=== PATIENT | male | born 1940 | race Caucasian/White ===

== ENCOUNTER 2019-03-05 16:52 | Inpatient (IN) | payer MEDICARE, OTHER ==
[2019-03-05] MEDS ORDERED: Aspirin 81 MG Tab.Chew PO ONE (17:44)
[2019-03-05] MEDS ORDERED: Diltiazem IR 30 MG Tab PO ONE (17:44)
--- NOTE | 2019-03-05 17:50 | EDM.PDOC ---
<Alex,Emily - Last Filed: 03/05/19 18:48> ED HPI GENERAL MEDICAL PROBLEM - General Chief Complaint: Cardiovascular Problem Stated Complaint: A FIB Time Seen by Provider: 03/05/19 17:35 - Related Data Allergies Allergy/AdvReac Type Severity Reaction Status Date / Time No Known Allergies Allergy Verified 03/05/19 17:12 Home Meds: Home Meds Docusate Sodium [Colace] 100 mg PO BID 03/29/14 [History] Niacin [Niacin ER] 500 mg PO DAILY 03/29/14 [History] atorvaSTATin [Lipitor] 10 mg PO BEDTIME 03/29/14 [History] levETIRAcetam [Keppra] 750 mg PO BID 03/29/14 [History] Betamethasone/Clotrimazole [Lotrisone] 1 applic TOP BID PRN 03/05/19 [History] Carbidopa/Levodopa [Sinemet 25-100 mg Tablet] 2 each PO QID 03/05/19 [History] Course - Vital Signs Last Recorded V/S: Last Vital Signs Temp 37.2 C 03/06/19 02:00 Pulse 90 03/06/19 07:00 Resp 22 H 03/06/19 07:00 BP 104/70 03/06/19 07:00 Pulse Ox 93 L 03/06/19 07:00 - Orders/Labs/Meds Orders: Active Orders 24 hr Category Date Time Status Cardiac Monitoring [RC] .As Directed Care 03/05/19 17:29 Inactive Diltiazem 125 mg Med 03/05/19 20:30 Active Sodium Chloride 0.9% [Normal Saline] 100 ml IV TITRATE Medication Orders Acetaminophen (Tylenol) 650 mg PO Q4H PRN PRN Reason: Pain (Mild 1-3)/fever Apixaban (Eliquis) 5 mg PO BID [facility] Last Admin: 03/05/19 22:29 Dose: 5 mg Atorvastatin Calcium (Lipitor) 10 mg PO BEDTIME [facility] Last Admin: 03/05/19 22:28 Dose: 10 mg Betamethasone/Clotrimazole (Lotrisone) 0 gm TOP BID PRN PRN Reason: rash Carbidopa/Levodopa (Sinemet 25-100 Mg) 2 tab PO 0630,1000,1500,2100 [facility] Last Admin: 03/06/19 06:27 Dose: 2 tab Docusate Sodium (Colace) 100 mg PO BID [facility] Last Admin: 03/05/19 22:28 Dose: 100 mg Diltiazem HCl 125 mg/ Sodium (Chloride) 125 mls @ 5 mls/hr IV TITRATE BERTHA; Protocol Last Titration: 03/06/19 00:35 Dose: 0 mg/hr, 0 mls/hr Titration: 03/06/19 00:00 Dose: 2.5 mg/hr, 2.5 mls/hr Admin: 03/05/19 20:40 Dose: 5 mg/hr, 5 mls/hr Levetiracetam (Keppra) 750 mg PO BID [facility] Last Admin: 03/05/19 22:28 Dose: 750 mg Niacin (Niacin) 500 mg PO DAILY [facility] Ondansetron HCl (Zofran) 4 mg IV Q4H PRN PRN Reason: Nausea/Vomiting Polyethylene Glycol (Miralax) 17 gm PO DAILY PRN PRN Reason: Constipation Sodium Chloride (Saline Flush) 10 ml FLUSH ASDIRECTED PRN PRN Reason: Keep Vein Open Labs: Laboratory Tests 03/05/19 03/05/19 03/05/19 Range/Units 17:57 17:57 18:43 WBC 4.2 L (4.5-11.0) K/uL RBC 4.71 (4.30-5.90) M/uL Hgb 14.1 D (12.0-15.0) g/dL Hct 43.6 (40.0-54.0) % MCV 93 (80-98) fL MCH 30 (27-31) pg MCHC 32 (32-36) % Plt Count 136 L (150-400) K/uL Sodium 146 (140-148) mmol/L Potassium 4.1 (3.6-5.2) mmol/L Chloride 108 (100-108) mmol/L Carbon Dioxide 28 (21-32) mmol/L Anion Gap 10.1 (5.0-14.0) mmol/L BUN 14 (7-18) mg/dL Creatinine 0.8 (0.8-1.3) mg/dL Est Cr Clr Drug Dosing 82.36 mL/min Estimated GFR (MDRD) > 60 (>60) Glucose 108 H (74-106) mg/dL Calcium 9.1 (8.5-10.1) mg/dL Magnesium 2.0 (1.8-2.4) mg/dL Total Bilirubin (0.2-1.0) mg/dL Direct Bilirubin (0.0-0.2) mg/dL Indirect Bilirubin AST (15-37) U/L ALT (12-78) U/L Alkaline Phosphatase (46-116) U/L Troponin I < 0.017 (0.000-0.056) ng/mL Total Protein (6.4-8.2) g/dL Albumin (3.4-5.0) g/dL Globulin (2.3-3.5) g/dL Albumin/Globulin Ratio (1.2-2.2) TSH, Ultra Sensitive 1.083 (0.358-3.740) uIU/mL 03/05/19 Range/Units 18:43 WBC (4.5-11.0) K/uL RBC (4.30-5.90) M/uL Hgb (12.0-15.0) g/dL Hct (40.0-54.0) % MCV (80-98) fL MCH (27-31) pg MCHC (32-36) % Plt Count (150-400) K/uL Sodium (140-148) mmol/L Potassium (3.6-5.2) mmol/L Chloride (100-108) mmol/L Carbon Dioxide (21-32) mmol/L Anion Gap (5.0-14.0) mmol/L BUN (7-18) mg/dL Creatinine (0.8-1.3) mg/dL Est Cr Clr Drug Dosing mL/min Estimated GFR (MDRD) (>60) Glucose (74-106) mg/dL Calcium (8.5-10.1) mg/dL Magnesium (1.8-2.4) mg/dL Total Bilirubin 0.6 (0.2-1.0) mg/dL Direct Bilirubin 0.18 (0.0-0.2) mg/dL Indirect Bilirubin 0.42 AST 35 (15-37) U/L ALT 13 D (12-78) U/L Alkaline Phosphatase 59 (46-116) U/L Troponin I (0.000-0.056) ng/mL Total Protein 6.1 L (6.4-8.2) g/dL Albumin 3.7 (3.4-5.0) g/dL Globulin 2.4 (2.3-3.5) g/dL Albumin/Globulin Ratio 1.5 (1.2-2.2) TSH, Ultra Sensitive (0.358-3.740) uIU/mL Meds: Medications Generic Name Dose Route Start Last Admin Trade Name Freq PRN Reason Stop Dose Admin Acetaminophen 650 mg 03/05/19 20:54 Tylenol PO Q4H PRN Pain (Mild 1-3)/fever Apixaban 5 mg 03/05/19 21:00 03/05/19 22:29 Eliquis PO 5 mg BID BERTHA Administration Atorvastatin Calcium 10 mg 03/05/19 21:00 03/05/19 22:28 Lipitor PO 10 mg BEDTIME BERTHA Administration Betamethasone/Clotrimazole 0 gm 03/05/19 22:00 Lotrisone TOP BID PRN rash Carbidopa/Levodopa 2 tab 03/06/19 06:30 03/06/19 06:27 Sinemet 25-100 Mg PO 2 tab 0630,1000,1500,2100 BERTHA Administration Docusate Sodium 100 mg 03/05/19 21:00 03/05/19 22:28 Colace PO 100 mg BID BERTHA Administration Diltiazem HCl 125 mg/ Sodium 125 mls @ 5 mls/hr 03/05/19 20:30 03/06/19 00:35 Chloride IV 0 mg/hr TITRATE BERTHA 0 mls/hr Titration Protocol 5 MG/HR Levetiracetam 750 mg 03/05/19 21:00 03/05/19 22:28 Keppra PO 750 mg BID BERTHA Administration Niacin 500 mg 03/06/19 09:00 Niacin PO DAILY BERTHA Ondansetron HCl 4 mg 03/05/19 20:54 Zofran IV Q4H PRN Nausea/Vomiting Polyethylene Glycol 17 gm 03/05/19 20:54 Miralax PO DAILY PRN Constipation Sodium Chloride 10 ml 03/05/19 20:54 Saline Flush FLUSH ASDIRECTED PRN Keep Vein Open Discontinued Medications Generic Name Dose Route Start Last Admin Trade Name Freq PRN Reason Stop Dose Admin Aspirin 324 mg 03/05/19 17:44 03/05/19 17:51 Aspirin PO 03/05/19 17:45 324 mg ONETIME ONE Administration Betamethasone/Clotrimazole 0 gm 03/05/19 21:00 Lotrisone TOP BID BERTHA Carbidopa/Levodopa 2 tab 03/05/19 21:00 Sinemet 25-100 Mg PO TID BERTHA Diltiazem HCl 30 mg 03/05/19 17:44 03/05/19 17:51 Cardizem PO 03/05/19 17:45 30 mg ONETIME ONE Administration Departure - Departure Disposition: Admitted As Inpatient 68 Clinical Impression: Atrial fibrillation Qualifiers: Atrial fibrillation type: paroxysmal Qualified Code(s): I48.0 - Paroxysmal atrial fibrillation - My Orders Last 24 Hours: My Active Orders 03/05/19 17:29 Cardiac Monitoring [RC] .As Directed - Assessment/Plan Last 24 Hours: My Active Orders 03/05/19 17:29 Cardiac Monitoring [RC] .As Directed <Hank Munoz - Last Filed: 03/06/19 08:00> ED HPI GENERAL MEDICAL PROBLEM - General Source of Information: Reports: Patient, Old Records, RN History Limitations: Reports: No Limitations - History of Present Illness INITIAL COMMENTS - FREE TEXT/NARRATIVE: 79 yo male presents with suspected afib with RVR. 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 He used to have HTN, but no longer does even without tx. He used to be on ASA, but no longer is. He has no hx of DM, CAD, CVA, or DVT. He usually has very brief bouts of afib, today it has been present since some time this morning, he knows he did not have it when he awoke. He gets most of his cares in [place] and would like to consult with them in the near future for this. He has early, mild Parkinsonism and is concerned about drug interactions with this. He is not aware of valvular dz of his heart. He does not have a hx of thyroid dz. He has no CP, SOB, or diaphoresis with today's afib episode. 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 (see below) (none) Past Medical History HEENT History: Reports: Impaired Vision Cardiovascular History: Reports: Afib, High Cholesterol, Hypertension Genitourinary History: Reports: Renal Calculus Musculoskeletal History: Reports: Back Pain, Chronic, Osteoarthritis Neurological History: Reports: Parkinson's, Seizure Other Neuro History: temporal lobe seizures Psychiatric History: Reports: None Hematologic History: Reports: Other (See Below) Other Hematologic History: lymes Oncologic (Cancer) History: Reports: Prostate Other Oncologic History: skin cancer Dermatologic History: Reports: Melanoma, Seborrheic Dermatitis - Infectious Disease History Infectious Disease History: Reports: Shingles - Past Surgical History HEENT Surgical History: Reports: Tonsillectomy Other HEENT Surgeries/Procedures: dental implant Male Surgical History: Reports: Prostatectomy Other Male Surgeries/Procedures: 2012 Social & Family History - Tobacco Use Smoking Status *Q: Never Smoker - Caffeine Use Caffeine Use: Reports: Coffee - Recreational Drug Use Recreational Drug Use: No ED ROS GENERAL - Review of Systems Review Of Systems: See Below Constitutional: Reports: No Symptoms HEENT: Reports: No Symptoms Respiratory: Reports: No Symptoms Cardiovascular: Reports: Palpitations (with tachycardia) Endocrine: Reports: No Symptoms GI/Abdominal: Reports: No Symptoms : Reports: No Symptoms Musculoskeletal: Reports: No Symptoms Skin: Reports: No Symptoms Neurological: Reports: No Symptoms Psychiatric: Reports: No Symptoms ED EXAM, GENERAL - Physical Exam Exam: See Below Exam Limited By: No Limitations General Appearance: Alert, WD/WN, No Apparent Distress Eye Exam: Bilateral Eye: Normal Inspection Ears: Normal External Exam, Normal Canal, Hearing Grossly Normal Ear Exam: Bilateral Ear: Auricle Normal, Canal Normal Nose: Normal Inspection, No Blood Throat/Mouth: Normal Inspection, Normal Lips, Normal Voice, No Airway Compromise Head: Atraumatic, Normocephalic Neck: Normal Inspection Respiratory/Chest: No Respiratory Distress, Lungs Clear, Normal Breath Sounds, No Accessory Muscle Use Cardiovascular: Tachycardia, Irregularly Irregular Neurological: Alert, Oriented, CN II-XII Intact, Normal Cognition, No Motor/ Sensory Deficits Psychiatric: Normal Affect, Normal Mood Skin Exam: Warm, Dry, Intact, Normal Color, No Rash Course - Orders/Labs/Meds Labs: Laboratory Tests 06/08/1303/05/19 03/05/19 Range/Units 17:57 17:57 18:43 WBC 4.2 L (4.5-11.0) K/uL RBC 4.71 (4.30-5.90) M/uL Hgb 14.1 D (12.0-15.0) g/dL Hct 43.6 (40.0-54.0) % MCV 93 (80-98) fL MCH 30 (27-31) pg MCHC 32 (32-36) % Plt Count 136 L (150-400) K/uL Sodium 146 (140-148) mmol/L Potassium 4.1 (3.6-5.2) mmol/L Chloride 108 (100-108) mmol/L Carbon Dioxide 28 (21-32) mmol/L Anion Gap 10.1 (5.0-14.0) mmol/L BUN 14 (7-18) mg/dL Creatinine 0.8 (0.8-1.3) mg/dL Est Cr Clr Drug Dosing 82.36 mL/min Estimated GFR (MDRD) > 60 (>60) Glucose 108 H (74-106) mg/dL Calcium 9.1 (8.5-10.1) mg/dL Magnesium 2.0 (1.8-2.4) mg/dL Total Bilirubin (0.2-1.0) mg/dL Direct Bilirubin (0.0-0.2) mg/dL Indirect Bilirubin AST (15-37) U/L ALT (12-78) U/L Alkaline Phosphatase (46-116) U/L Troponin I < 0.017 (0.000-0.056) ng/mL Total Protein (6.4-8.2) g/dL Albumin (3.4-5.0) g/dL Globulin (2.3-3.5) g/dL Albumin/Globulin Ratio (1.2-2.2) TSH, Ultra Sensitive 1.083 (0.358-3.740) uIU/mL 03/05/19 Range/Units 18:43 WBC (4.5-11.0) K/uL RBC (4.30-5.90) M/uL Hgb (12.0-15.0) g/dL Hct (40.0-54.0) % MCV (80-98) fL MCH (27-31) pg MCHC (32-36) % Plt Count (150-400) K/uL Sodium (140-148) mmol/L Potassium (3.6-5.2) mmol/L Chloride (100-108) mmol/L Carbon Dioxide (21-32) mmol/L Anion Gap (5.0-14.0) mmol/L BUN (7-18) mg/dL Creatinine (0.8-1.3) mg/dL Est Cr Clr Drug Dosing mL/min Estimated GFR (MDRD) (>60) Glucose (74-106) mg/dL Calcium (8.5-10.1) mg/dL Magnesium (1.8-2.4) mg/dL Total Bilirubin 0.6 (0.2-1.0) mg/dL Direct Bilirubin 0.18 (0.0-0.2) mg/dL Indirect Bilirubin 0.42 AST 35 (15-37) U/L ALT 13 D (12-78) U/L Alkaline Phosphatase 59 (46-116) U/L Troponin I (0.000-0.056) ng/mL Total Protein 6.1 L (6.4-8.2) g/dL Albumin 3.7 (3.4-5.0) g/dL Globulin 2.4 (2.3-3.5) g/dL Albumin/Globulin Ratio 1.5 (1.2-2.2) TSH, Ultra Sensitive (0.358-3.740) uIU/mL Departure - Departure Time of Disposition: 20:15
[2019-03-05] MEDS ORDERED: Diltiazem 125 MG in Sodium Chloride 0.9% 100 ML IV SCH (20:30)
--- NOTE | 2019-03-05 20:30 | PCM.HP ---
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 Over the past few years he has had intermittent brief episodes of rapid irregular heart rhythm. A few days ago experienced approximately 24 hours of this rhythm which then converted spontaneously to normal rhythm as far as he could tell. He noted onset of a rapid irregular rhythm earlier today, did feel somewhat weak and lightheaded. When the rhythm persisted throughout the day he presented to the emergency department earlier this evening. On evaluation he was found to be in atrial fibrillation with rapid ventricular response. He has received 1:30 milligrams dose of oral diltiazem and his rate has slowed although blood pressure has been somewhat borderline since he received the medication. He does report that he is feeling improved, heart rates remained between 100-120. He denies any symptoms of chest pain or pressure or significant shortness of breath, troponin level was within normal range. Hemoglobin is adequate, there are no significant electrolyte abnormalities, and TSH is within normal range. Calculated [id number]- VASc score is 3. - Related Data Allergies/Adverse Reactions: Allergies Allergy/AdvReac Type Severity Reaction Status Date / Time No Known Allergies Allergy Verified 03/05/19 17:12 Home Medications: Home Meds Docusate Sodium [Colace] 100 mg PO BID 03/29/14 [History] Niacin [Niacin ER] 500 mg PO DAILY 03/29/14 [History] atorvaSTATin [Lipitor] 10 mg PO BEDTIME 03/29/14 [History] levETIRAcetam [Keppra] 750 mg PO BID 03/29/14 [History] Betamethasone/Clotrimazole [Lotrisone] 1 applic TOP BID 03/05/19 [History] Carbidopa/Levodopa [Sinemet 25-100 mg Tablet] 2 each PO TID 03/05/19 [History] Past Medical History HEENT History: Reports: Impaired Vision Cardiovascular History: Reports: Afib, High Cholesterol, Hypertension Genitourinary History: Reports: Renal Calculus Musculoskeletal History: Reports: Back Pain, Chronic, Osteoarthritis Neurological History: Reports: Parkinson's, Seizure Other Neuro History: temporal lobe seizures Psychiatric History: Reports: None Hematologic History: Reports: Other (See Below) Other Hematologic History: lymes Oncologic (Cancer) History: Reports: Prostate Other Oncologic History: skin cancer Dermatologic History: Reports: Melanoma, Seborrheic Dermatitis - Infectious Disease History Infectious Disease History: Reports: Shingles - Past Surgical History HEENT Surgical History: Reports: Tonsillectomy Other HEENT Surgeries/Procedures: dental implant Male Surgical History: Reports: Prostatectomy Other Male Surgeries/Procedures: 2013 Social & Family History - Tobacco Use Smoking Status *Q: Never Smoker - Caffeine Use Caffeine Use: Reports: Coffee - Recreational Drug Use Recreational Drug Use: No H&P Review of Systems - Review of Systems: Review Of Systems: See Below General: Reports: Weakness. Denies: Fever, Chills HEENT: Reports: No Symptoms Pulmonary: Reports: No Symptoms Cardiovascular: Reports: Palpitations, Edema, Lightheadedness. Denies: Chest Pain, Dyspnea on Exertion, Orthopnea, PND, Syncope Gastrointestinal: Reports: No Symptoms Genitourinary: Reports: No Symptoms Musculoskeletal: Reports: No Symptoms Skin: Reports: No Symptoms Psychiatric: Reports: No Symptoms Neurological: Reports: Pre-Existing Deficit (Parkinson's disease), Seizure ( Seizure disorder well controlled on medication) Hematologic/Lymphatic: Reports: No Symptoms Immunologic: Reports: No Symptoms Exam - Exam Exam: See Below - Vital Signs Vital Signs: Last Vital Signs Temp 96.8 F 03/05/19 17:10 Pulse 103 H 03/05/19 20:13 Resp 16 03/05/19 20:13 BP 122/76 03/05/19 20:13 Pulse Ox 100 03/05/19 20:13 Weight: 184 lb 15.485 oz - Exam Quality Assessment: DVT Prophylaxis General: Alert, Oriented, Cooperative, Mild Distress HEENT: Conjunctiva Clear, Hearing Intact, Mucosa Moist & [place], Normal Nasal Septum, Posterior Pharynx Clear, Pupils Equal Neck: Supple, Trachea Midline, +2 Carotid Pulse wo Bruit Lungs: Clear to Auscultation, Normal Respiratory Effort Cardiovascular: Irregular Rhythm, Tachycardia, Systolic Murmur. No: Diastolic Murmur GI/Abdominal Exam: Soft, Non-Tender, No Organomegaly, No Distention Back Exam: Normal Inspection, Full Range of Motion Extremities: Non-Tender, Pedal Edema (Trace) Skin: Warm, Dry Neuro Extensive - Mental Status: Alert, Oriented x3, Normal Mood/Affect, Normal Cognition, Memory Intact - Patient Data Lab Results Last 24 hrs: Laboratory Results - last 24 hr 03/05/19 03/05/19 03/05/19 Range/Units 17:57 17:57 18:43 WBC 4.2 L (4.5-11.0) K/uL RBC 4.71 (4.30-5.90) M/uL Hgb 14.1 D (12.0-15.0) g/dL Hct 43.6 (40.0-54.0) % MCV 93 (80-98) fL MCH 30 (27-31) pg MCHC 32 (32-36) % Plt Count 136 L (150-400) K/uL Sodium 146 (140-148) mmol/L Potassium 4.1 (3.6-5.2) mmol/L Chloride 108 (100-108) mmol/L Carbon Dioxide 28 (21-32) mmol/L Anion Gap 10.1 (5.0-14.0) mmol/L BUN 14 (7-18) mg/dL Creatinine 0.8 (0.8-1.3) mg/dL Est Cr Clr Drug Dosing 82.36 mL/min Estimated GFR (MDRD) > 60 (>60) Glucose 108 H (74-106) mg/dL Calcium 9.1 (8.5-10.1) mg/dL Magnesium 2.0 (1.8-2.4) mg/dL Total Bilirubin (0.2-1.0) mg/dL Direct Bilirubin (0.0-0.2) mg/dL Indirect Bilirubin AST (15-37) U/L ALT (12-78) U/L Alkaline Phosphatase (46-116) U/L Troponin I < 0.017 (0.000-0.056) ng/mL Total Protein (6.4-8.2) g/dL Albumin (3.4-5.0) g/dL Globulin (2.3-3.5) g/dL Albumin/Globulin Ratio (1.2-2.2) TSH, Ultra Sensitive 1.083 (0.358-3.740) uIU/mL 03/05/19 Range/Units 18:43 WBC (4.5-11.0) K/uL RBC (4.30-5.90) M/uL Hgb (12.0-15.0) g/dL Hct (40.0-54.0) % MCV (80-98) fL MCH (27-31) pg MCHC (32-36) % Plt Count (150-400) K/uL Sodium (140-148) mmol/L Potassium (3.6-5.2) mmol/L Chloride (100-108) mmol/L Carbon Dioxide (21-32) mmol/L Anion Gap (5.0-14.0) mmol/L BUN (7-18) mg/dL Creatinine (0.8-1.3) mg/dL Est Cr Clr Drug Dosing mL/min Estimated GFR (MDRD) (>60) Glucose (74-106) mg/dL Calcium (8.5-10.1) mg/dL Magnesium (1.8-2.4) mg/dL Total Bilirubin 0.6 (0.2-1.0) mg/dL Direct Bilirubin 0.18 (0.0-0.2) mg/dL Indirect Bilirubin 0.42 AST 35 (15-37) U/L ALT 13 D (12-78) U/L Alkaline Phosphatase 59 (46-116) U/L Troponin I (0.000-0.056) ng/mL Total Protein 6.1 L (6.4-8.2) g/dL Albumin 3.7 (3.4-5.0) g/dL Globulin 2.4 (2.3-3.5) g/dL Albumin/Globulin Ratio 1.5 (1.2-2.2) TSH, Ultra Sensitive (0.358-3.740) uIU/mL Result Diagrams: 03/05/19 17:57 03/05/19 17:57 *Q Meaningful Use (ADM) - VTE *Q VTE Pharmacological Contraindications *Q: High INR Value - VTE Risk Assess *Q Each Risk Factor Represents 1 Point: None Total Score 1 Point Risk Factors: 0 Each Risk Factor Represents 2 Points: None Total Score 2 Point Risk Factors: 0 Each Risk Factor Represents 3 Points: Age 75 Years or Greater Total Score 3 Point Risk Factors: 3 Each Risk Factor Represents 5 Points: None Total Score 5 Point Risk Factors: 0 Venous Thromboembolism Risk Factor Score *Q: 3 Problem List Initiated/Reviewed/Updated: Yes Orders Last 24hrs: Active Orders 24 hr Category Date Time Status Patient Status Manage Transfer [TRANSFER] Routine ADT 03/05/19 20:19 Ordered Cardiac Monitoring [RC] .As Directed Care 03/05/19 17:29 Active Diltiazem 125 mg Med 03/05/19 20:30 Active Sodium Chloride 0.9% [Normal Saline] 100 ml IV TITRATE Resuscitation Status Routine Resus Stat 03/05/19 20:22 Ordered Medication Orders Diltiazem HCl 125 mg/ Sodium (Chloride) 125 mls @ 5 mls/hr IV TITRATE BERTHA; Protocol Assessment/Plan Comment:: ASSESSMENT AND PLAN ATRIAL FIBRILLATION WITH RAPID VENTRICULAR RESPONSE-history of very transient episodes occurring infrequently over the past few years. Episode within the past week that lasted approximately 24 hours and then spontaneously resolved. Now has been in atrial fibrillation since earlier this morning. We did discuss options for anticoagulation given his chads score. -Diltiazem continuous infusion 5 mg per hour -Transition to oral medication in a.m. -Eliquis 5 mg by mouth twice a day -Outpatient follow-up with EP cardiology [facility] in [place] -Defer echocardiogram to follow-up at [facility] PARKINSON'S DISEASE -Continue outpatient medications MAINTENANCE ISSUES -DVT prophylaxis; current therapy with Eliquis should provide adequate DVT prophylaxis -GI prophylaxis; not indicated -Morales catheter; not indicated -Nutrition; regular diet -Nicotine dependence; not required CODE STATUS-FULL CODE ADMISSION STATUS-patient will be admitted to inpatient status, expect at least a 2 night hospital stay for evaluation and management of problems as outlined above. At the time of this admission I do not reasonably expected evaluation and management of this problem will require more than a 96 hour hospital stay. DISPOSITION-anticipate discharge to home after the hospital stay. PRIMARY CARE PROVIDER-Dr. Garcia
[2019-03-05] MEDS ORDERED: Polyethylene Glycol 3350 Powder 17 GM Packet PO PRN (20:54)
[2019-03-05] MEDS ORDERED: Ondansetron 4 MG/2 ML SDV IV PRN (20:54)
[2019-03-05] MEDS ORDERED: Acetaminophen 325 MG Tab PO PRN (20:54)
[2019-03-05] MEDS ORDERED: Sodium Chloride 0.9% 10 ML Syringe FLUSH PRN (20:54)
[2019-03-05] MEDS ORDERED: levETIRAcetam 250 MG Tab PO SCH (21:00)
[2019-03-05] MEDS ORDERED: Apixaban 5 MG Tab PO SCH (21:00)
[2019-03-05] MEDS ORDERED: Betamethasone Dipropionate/Clotrimazole 0.05-1% Crm 15 GM Tube TOP SCH (21:00)
[2019-03-05] MEDS ORDERED: Docusate Sodium 100 MG Cap PO SCH (21:00)
[2019-03-05] MEDS ORDERED: atorvaSTATin 10 MG Tab PO SCH (21:00)
[2019-03-05] MEDS ORDERED: Carbidopa/Levodopa 25-100 MG Tab PO SCH (21:00)
[2019-03-05] MEDS ORDERED: Betamethasone Dipropionate/Clotrimazole 0.05-1% Crm 15 GM Tube TOP PRN (22:00)
[2019-03-06] MEDS ORDERED: Carbidopa/Levodopa 25-100 MG Tab PO SCH (06:30)
[2019-03-06] MEDS ORDERED: Niacin 500 MG Cap.ER PO SCH (09:00)
--- NOTE | 2019-03-06 09:25 | PCM.DCSUM1 ---
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 - Discharge Data Discharge Date: 03/06/19 Discharge Disposition: Home, Self-Care 01 Condition: Good - Discharge Diagnosis/Problem(s) (1) Atrial fibrillation with rapid ventricular response SNOMED Code(s): 013287955338074 ICD Code: I48.91 - UNSPECIFIED ATRIAL FIBRILLATION Status: Acute Current Visit: Yes (2) History of prostate cancer SNOMED Code(s): 860068426 ICD Code: Z85.46 - PERSONAL HISTORY OF MALIGNANT NEOPLASM OF PROSTATE Status: Chronic Current Visit: No (3) Parkinson disease SNOMED Code(s): 93348979 ICD Code: G20 - PARKINSON'S DISEASE Status: Chronic Current Visit: No - Patient Summary/Data Hospital Course: 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 Over the past few years he has had intermittent brief episodes of rapid irregular heart rhythm. A few days ago experienced approximately 24 hours of this rhythm which then converted spontaneously to normal rhythm as far as he could tell. He noted onset of a rapid irregular rhythm earlier today, did feel somewhat weak and lightheaded. When the rhythm persisted throughout the day he presented to the emergency department earlier this evening. On evaluation he was found to be in atrial fibrillation with rapid ventricular response. He has received a 30 milligram dose of oral diltiazem and his rate has slowed, although blood pressure has been somewhat borderline since he received the medication. He does report that he is feeling improved, heart rates remained between 100-120. He denies any symptoms of chest pain or pressure or significant shortness of breath, troponin level was within normal range. Hemoglobin is adequate, there are no significant electrolyte abnormalities, and TSH is within normal range. Calculated [id number]- VASc score is 3. On admission he was started on IV diltiazem continuous infusion at 5 mg per hour. Unfortunately he was intolerant of the diltiazem and within a few hours did develop significant hypotension. Diltiazem infusion was discontinued and his blood pressure improved. On the morning of discharge he spontaneously converted to sinus rhythm. We did have a discussion concerning anticoagulation, after review of benefits versus side effects of warfarin versus Eliquis, he has decided to start on Eliquis for anticoagulation. Follow-up appointment will be scheduled with Dr. Garcia within one week. 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 He will also require outpatient echocardiogram for further evaluation of the atrial fibrillation. Activity will be as tolerated and he will resume his usual diet. - Patient Instructions Diet: Usual Diet as Tolerated Activity: As Tolerated Other/Special Instructions: Please schedule follow-up appointment with Dr. Garcia within one week. Patient will contact his physician at [facility] in [place] to schedule appointment with cardiology for follow-up of atrial fibrillation. - Discharge Plan *PRESCRIPTION DRUG MONITORING PROGRAM REVIEWED*: Not Applicable *COPY OF PRESCRIPTION DRUG MONITORING REPORT IN PATIENT BRIELLE: Not Applicable Prescriptions/Med Rec: Apixaban [Eliquis] 5 mg PO BID #60 tablet Home Medications: Home Meds Docusate Sodium [Colace] 100 mg PO BID 03/29/14 [History] Niacin [Niacin ER] 500 mg PO DAILY 03/29/14 [History] atorvaSTATin [Lipitor] 10 mg PO BEDTIME 03/29/14 [History] levETIRAcetam [Keppra] 750 mg PO BID 03/29/14 [History] Betamethasone/Clotrimazole [Lotrisone] 1 applic TOP BID PRN 03/05/19 [History] Carbidopa/Levodopa [Sinemet 25-100 mg Tablet] 2 each PO QID 03/05/19 [History] Apixaban [Eliquis] 5 mg PO BID #60 tablet 03/06/19 [Rx] Referrals: Sachin Garcia MD [Primary Care Provider] - - Discharge Summary/Plan Comment DC Time >30 min.: No - Patient Data Vitals - Most Recent: Last Vital Signs Temp 98 F 03/06/19 08:00 Pulse 90 03/06/19 07:00 Resp 13 03/06/19 09:00 BP 121/72 03/06/19 09:00 Pulse Ox 96 03/06/19 09:00 Weight - Most Recent: 184 lb 15.485 oz I&O - Last 24 hours: Intake & Output 03/05/19 03/06/19 03/06/19 22:59 06:59 14:59 Intake Total 480 Output Total 325 Balance 155 Lab Results - Last 24 hrs: Laboratory Results - last 24 hr 03/05/19 03/05/19 03/05/19 Range/Units 17:57 17:57 18:43 WBC 4.2 L (4.5-11.0) K/uL RBC 4.71 (4.30-5.90) M/uL Hgb 14.1 D (12.0-15.0) g/dL Hct 43.6 (40.0-54.0) % MCV 93 (80-98) fL MCH 30 (27-31) pg MCHC 32 (32-36) % Plt Count 136 L (150-400) K/uL Sodium 146 (140-148) mmol/L Potassium 4.1 (3.6-5.2) mmol/L Chloride 108 (100-108) mmol/L Carbon Dioxide 28 (21-32) mmol/L Anion Gap 10.1 (5.0-14.0) mmol/L BUN 14 (7-18) mg/dL Creatinine 0.8 (0.8-1.3) mg/dL Est Cr Clr Drug Dosing 82.36 mL/min Estimated GFR (MDRD) > 60 (>60) Glucose 108 H (74-106) mg/dL Calcium 9.1 (8.5-10.1) mg/dL Magnesium 2.0 (1.8-2.4) mg/dL Total Bilirubin (0.2-1.0) mg/dL Direct Bilirubin (0.0-0.2) mg/dL Indirect Bilirubin AST (15-37) U/L ALT (12-78) U/L Alkaline Phosphatase (46-116) U/L Troponin I < 0.017 (0.000-0.056) ng/mL Total Protein (6.4-8.2) g/dL Albumin (3.4-5.0) g/dL Globulin (2.3-3.5) g/dL Albumin/Globulin Ratio (1.2-2.2) TSH, Ultra Sensitive 1.083 (0.358-3.740) uIU/mL 03/05/19 Range/Units 18:43 WBC (4.5-11.0) K/uL RBC (4.30-5.90) M/uL Hgb (12.0-15.0) g/dL Hct (40.0-54.0) % MCV (80-98) fL MCH (27-31) pg MCHC (32-36) % Plt Count (150-400) K/uL Sodium (140-148) mmol/L Potassium (3.6-5.2) mmol/L Chloride (100-108) mmol/L Carbon Dioxide (21-32) mmol/L Anion Gap (5.0-14.0) mmol/L BUN (7-18) mg/dL Creatinine (0.8-1.3) mg/dL Est Cr Clr Drug Dosing mL/min Estimated GFR (MDRD) (>60) Glucose (74-106) mg/dL Calcium (8.5-10.1) mg/dL Magnesium (1.8-2.4) mg/dL Total Bilirubin 0.6 (0.2-1.0) mg/dL Direct Bilirubin 0.18 (0.0-0.2) mg/dL Indirect Bilirubin 0.42 AST 35 (15-37) U/L ALT 13 D (12-78) U/L Alkaline Phosphatase 59 (46-116) U/L Troponin I (0.000-0.056) ng/mL Total Protein 6.1 L (6.4-8.2) g/dL Albumin 3.7 (3.4-5.0) g/dL Globulin 2.4 (2.3-3.5) g/dL Albumin/Globulin Ratio 1.5 (1.2-2.2) TSH, Ultra Sensitive (0.358-3.740) uIU/mL Med Orders - Current: Current Medications Acetaminophen (Tylenol) 650 mg PO Q4H PRN PRN Reason: Pain (Mild 1-3)/fever Apixaban (Eliquis) 5 mg PO BID BERTHA Last Admin: 03/05/19 22:29 Dose: 5 mg Atorvastatin Calcium (Lipitor) 10 mg PO BEDTIME BERTHA Last Admin: 03/05/19 22:28 Dose: 10 mg Betamethasone/Clotrimazole (Lotrisone) 0 gm TOP BID PRN PRN Reason: rash Carbidopa/Levodopa (Sinemet 25-100 Mg) 2 tab PO 0630,1000,1500,2100 BERTHA Last Admin: 03/06/19 06:27 Dose: 2 tab Docusate Sodium (Colace) 100 mg PO BID [facility] Last Admin: 03/05/19 22:28 Dose: 100 mg Diltiazem HCl 125 mg/ Sodium (Chloride) 125 mls @ 5 mls/hr IV TITRATE [facility]; Protocol Last Titration: 03/06/19 00:35 Dose: 0 mg/hr, 0 mls/hr Levetiracetam (Keppra) 750 mg PO BID [facility] Last Admin: 03/05/19 22:28 Dose: 750 mg Niacin (Niacin) 500 mg PO DAILY [facility] Ondansetron HCl (Zofran) 4 mg IV Q4H PRN PRN Reason: Nausea/Vomiting Polyethylene Glycol (Miralax) 17 gm PO DAILY PRN PRN Reason: Constipation Sodium Chloride (Saline Flush) 10 ml FLUSH ASDIRECTED PRN PRN Reason: Keep Vein Open Discontinued Medications Aspirin (Aspirin) 324 mg PO ONETIME ONE Stop: 03/05/19 17:45 Last Admin: 03/05/19 17:51 Dose: 324 mg Betamethasone/Clotrimazole (Lotrisone) 0 gm TOP BID [facility] Carbidopa/Levodopa (Sinemet 25-100 Mg) 2 tab PO TID [facility] Diltiazem HCl (Cardizem) 30 mg PO ONETIME ONE Stop: 03/05/19 17:45 Last Admin: 03/05/19 17:51 Dose: 30 mg - Exam General: Reports: Alert, Oriented, Cooperative, No Acute Distress Lungs: Reports: Clear to Auscultation, Normal Respiratory Effort Cardiovascular: Reports: Regular Rate, Regular Rhythm, No Murmurs GI/Abdominal Exam: Soft, Non-Tender, No Organomegaly, No Distention Extremities: Non-Tender, No Pedal Edema *Q Meaningful Use (DIS) - VTE *Q VTE Pharmacological Contraindications *Q: High INR Value
== END 2019-03-06 10:07 | disposition home or self-care (01) | DRG 310 ==
LOC: JP.ED 16:52 → JP.ICU 20:19
PROVIDERS: ADMIT Hospitalist; ATTEND Hospitalist
DX: I48.91 Unspecified atrial fibrillation (principal); G20 Parkinson's disease; G40.909 Epilepsy, unspecified, not intractable, without status epilepticus; I95.89 Other hypotension; T46.1X5A Adverse effect of calcium-channel blockers, initial encounter; Y92.239 Unspecified place in hospital as the place of occurrence of the external cause; H54.7 Unspecified visual loss; Z85.828 Personal history of other malignant neoplasm of skin; Z85.820 Personal history of malignant melanoma of skin; M54.9 Dorsalgia, unspecified; G89.29 Other chronic pain; M19.90 Unspecified osteoarthritis, unspecified site; Z86.79 Personal history of other diseases of the circulatory system; Z87.442 Personal history of urinary calculi; Z90.79 Acquired absence of other genital organ(s)
CPT/HCPCS: 36415; 80048; 80076; 83735; 84443; 84484; 85027; 99285; A9270 ×2; J3490; J7030

== ENCOUNTER 2021-04-25 12:06 | Emergency (ER) | payer MEDICARE, OTHER ==
--- NOTE | 2021-04-25 14:02 | EDM.PDOC ---
ED HPI GENERAL MEDICAL PROBLEM - General Chief Complaint: Back Pain or Injury Stated Complaint: FALL - BACK PAIN Time Seen by Provider: 04/25/21 13:53 Source of Information: Reports: Patient History Limitations: Reports: No Limitations - History of Present Illness INITIAL COMMENTS - FREE TEXT/NARRATIVE: pt elizabeth najera and has had episodes of acute back pain since the fall. He admits that prior to the fall he was having some problems but it is much worse at this time. He describes pain from mid thoracic to the lumbar area. Onset: Other (pt fell reinaldo. ) Duration: Day(s): Location: Reports: Back, Other (pt is having pain from the midthoracic to the mid lumbar area. He does not have pain going down his legs. ) Associated Symptoms: Reports: No Other Symptoms Lower Back Pain Score (Numeric/FACES): 7 - Related Data Allergies Allergy/AdvReac Type Severity Reaction Status Date / Time No Known Allergies Allergy Verified 04/25/21 12:59 Home Meds: Home Meds Niacin [Niacin ER] 500 mg PO DAILY 03/29/14 [History] atorvaSTATin [Lipitor] 10 mg PO BEDTIME 03/29/14 [History] levETIRAcetam [Keppra] 750 mg PO BID 03/29/14 [History] Betamethasone/Clotrimazole [Lotrisone] 1 applic TOP BID PRN 03/05/19 [History] Carbidopa/Levodopa [Sinemet 25-100 mg Tablet] 2 each PO Q2HR 03/05/19 [History] Apixaban [Eliquis] 5 mg PO BID #60 tablet 03/06/19 [Rx] Acetaminophen [Tylenol Extra Strength] 500 mg PO ASDIRECTED 04/25/21 [History] Cannabidiol (Cbd) Extract [CBD Oil] 17 mg PO BID 04/25/21 [History] Cholecalciferol (Vitamin D3) [Vitamin D] 5,000 unit PO DAILY 04/25/21 [History] Fish Oil/Borage/Flax/Om3,6,9 1 [[place] 3-6-9 Complex Softgel] 1 each PO BID 04/25/21 [History] Flecainide [Tambocor] 1 tab PO BID 04/25/21 [History] Hydrocodone/Acetaminophen [Hydrocodon-Acetaminoph 7.5-300] 1 tab PO Q6HR 04/29/21 [History] Linaclotide [Linzess] 1 applic PO DAILY 04/29/21 [History] Past Medical History HEENT History: Reports: Cataract, Impaired Vision Cardiovascular History: Reports: Afib, Arrhythmia, High Cholesterol, Hypertension Other Cardiovascular History: afib Respiratory History: Reports: Asthma Gastrointestinal History: Reports: Chronic Constipation Genitourinary History: Reports: Renal Calculus Musculoskeletal History: Reports: Back Pain, Chronic, Osteoarthritis Neurological History: Reports: Parkinson's, Seizure Other Neuro History: temporal lobe seizures Psychiatric History: Reports: None Hematologic History: Reports: Other (See Below) Other Hematologic History: lymes Oncologic (Cancer) History: Reports: Prostate Other Oncologic History: skin cancer Dermatologic History: Reports: Melanoma, Seborrheic Dermatitis - Infectious Disease History Infectious Disease History: Reports: Shingles - Past Surgical History HEENT Surgical History: Reports: Tonsillectomy Other HEENT Surgeries/Procedures: dental implant Male Surgical History: Reports: Prostatectomy Other Male Surgeries/Procedures: 2013 Social & Family History - Tobacco Use Tobacco Use Status *Q: Never Tobacco User - Caffeine Use Caffeine Use: Reports: None - Recreational Drug Use Recreational Drug Use: No ED ROS GENERAL - Review of Systems Review Of Systems: See Below Constitutional: Reports: No Symptoms HEENT: Reports: No Symptoms Respiratory: Reports: No Symptoms Cardiovascular: Reports: No Symptoms Endocrine: Reports: No Symptoms GI/Abdominal: Reports: No Symptoms : Reports: No Symptoms Musculoskeletal: Reports: Back Pain Skin: Reports: No Symptoms ED EXAM,LOWER BACK PAIN/INJURY - Physical Exam Exam: See Below Text/Narrative:: pt arrived with a history of sharp pain in his lower back. He had a twisting fall on ur. Pt has parkinsons and his balance has been affected. He is having difficulty getting up and down. Exam Limited By: No Limitations General Appearance: Alert, Anxious, Moderate Distress Ears: Normal TMs Nose: Normal Inspection Throat/Mouth: Normal Inspection Head: Atraumatic Neck: Normal Inspection Respiratory/Chest: No Respiratory Distress Cardiovascular: Regular Rate, Rhythm GI/Abdominal: Soft, Non-Tender (Male) Exam: Deferred Rectal (Males) Exam: Deferred Back Exam: Other (pt is having pain from the mid thoracic to the mid lumbar. . His pain is not well localized. He does not have tenderness in the ribs. he has poor balance because of the parkinsons. ) Extremities: Normal Inspection Neurological: Alert, Oriented x 3, Other (pt has parkinsons and has some loss of mobility because of that. ) Psychiatric: Anxious Skin Exam: Warm Course - Vital Signs Last Recorded V/S: Last Vital Signs Temp 36.4 C 04/25/21 12:57 Pulse 69 04/25/21 12:57 Resp 15 04/25/21 12:57 BP 122/70 04/25/21 12:57 Pulse Ox 99 04/25/21 12:57 - Re-Assessments/Exams Free Text/Narrative Re-Assessment/Exam: 04/25/21 14:57 xrays of the lumbar and thoracic spine were obtained. This did not show compression changes or fractures. He does have sig degenerative disc disease. 05/03/21 19:42 Departure - Departure Time of Disposition: 14:46 Disposition: Home, Self-Care 01 Condition: Fair Clinical Impression: Contusion of lower back, Parkinsons - Discharge Information Instructions: Contusion, [id number] Referrals: Sachin Garcia MD [Primary Care Provider] - Forms: ED Department Discharge Care Plan Goals: moist warm psckds followed by cool packs to tender areas in back, continue Physical therapy, in a safe manner make yourself be up and about. tylenol 650 qid as needed for pain. Pt was offered some norco but chose not to take it. Pt did call back and wanted the perscription for norco. He was given 10- of the Sepsis Event Note (ED) - Evaluation Sepsis Screening Result: No Definite Risk
--- NOTE | 2021-04-26 10:31 | CR ---
Lumbar Spine Min 4V, Thoracic Spine 3V CLINICAL HISTORY: Fall, pain FINDINGS: The vertebral body heights are maintained. There is diffuse degenerative disc disease. There is diffuse facet disease in the mid and lower lumbar spine. Following is maintained IMPRESSION: Diffuse degenerative disc disease Osteoarthritis No acute fracture or subluxation , Thoracic Spine 3V CLINICAL HISTORY: Fall, pain FINDINGS: The vertebral bodies are normal in height. There is some diffuse disc space narrowing There is mild diffuse osteophytosis. The pedicles are unremarkable. Alignment is maintained. Impression: Diffuse degenerative disc disease with osteophytosis No fracture or subluxation
--- NOTE | 2021-05-04 07:08 | LETTER ---
05/03/2021 Oleksandr Mccoy [address] [place] [address] RE: OLEKSANDR MCCOYBUZZ : 1940 Dear Oleksandr, You were at the emergency room on 04/25/2021 having significant discomfort in your upper lumbar and lower thoracic area. As I recall, you had a fall 2 to 3 days earlier. X-rays of your lumbar spine and your thoracic spine were obtained and which showed degenerative arthritis and some degenerative disk disease. There were no acute compression fractures. I did review the Radiologist's report on this and he was in agreement with the interpretation. It is my recommendation at this time that if your pain is persistent that you would see Orthopedics and consider an MRI of your back. If you wish for a referral to Dr. Suarez, please get a hold of me or get a hold of the ER. Thank you. Sincerely, /[id number]
== END 2021-04-25 15:08 | disposition home or self-care (01) ==
LOC: JP.ED 12:06
DX: S30.0XXA Contusion of lower back and pelvis, initial encounter (principal); G20 Parkinson's disease; I48.91 Unspecified atrial fibrillation; E78.00 Pure hypercholesterolemia, unspecified; I10 Essential (primary) hypertension; J45.909 Unspecified asthma, uncomplicated; M19.90 Unspecified osteoarthritis, unspecified site; Z79.01 Long term (current) use of anticoagulants; Z79.899 Other long term (current) drug therapy; W19.XXXA Unspecified fall, initial encounter
CPT/HCPCS: 72072; 72072-26; 72110; 72110-26; 99283-25

== ENCOUNTER 2021-04-29 11:46 | Emergency (ER) | payer MEDICARE, OTHER ==
[2021-04-29] MEDS ORDERED: Acetaminophen 325 MG Tab PO ONE (13:52)
[2021-04-29] MEDS ORDERED: Ibuprofen 400 MG Tab PO ONE (13:52)
--- NOTE | 2021-04-29 14:16 | EDM.PDOC ---
ED HPI GENERAL MEDICAL PROBLEM - General Chief Complaint: Back Pain or Injury Stated Complaint: BACK ISSUES Time Seen by Provider: 04/29/21 13:50 Source of Information: Reports: Patient, Family, Old Records, RN Notes Reviewed - History of Present Illness INITIAL COMMENTS - FREE TEXT/NARRATIVE: 81-year-old male with Parkinson's disease getting weaker in his legs because he says he cannot exercise secondary to pain in his back. He apparently fell several days ago and landed on his back and was seen by Dr. Johnson and x-rays of his thoracolumbar spine which according to the no did not show any comp ression fractures. Patient has continued at home but with discomfort and is not getting relief from any pain medications. Parenthetically he has been constipated no bowel movement for last 3 days despite Linzess. He does have MiraLAX at home but has not been taking it in adequate amounts. He denies bowel or bladder loss of function but does have constipation issue. He struggled greatly by his Parkinson's. - Related Data Allergies Allergy/AdvReac Type Severity Reaction Status Date / Time No Known Allergies Allergy Verified 04/25/21 12:59 Home Meds: Home Meds Niacin [Niacin ER] 500 mg PO DAILY 03/29/14 [History] atorvaSTATin [Lipitor] 10 mg PO BEDTIME 03/29/14 [History] levETIRAcetam [Keppra] 750 mg PO BID 03/29/14 [History] Betamethasone/Clotrimazole [Lotrisone] 1 applic TOP BID PRN 03/05/19 [History] Carbidopa/Levodopa [Sinemet 25-100 mg Tablet] 2 each PO Q2HR 03/05/19 [History] Apixaban [Eliquis] 5 mg PO BID #60 tablet 03/06/19 [Rx] Acetaminophen [Tylenol Extra Strength] 500 mg PO ASDIRECTED 04/25/21 [History] Cannabidiol (Cbd) Extract [CBD Oil] 17 mg PO BID 04/25/21 [History] Cholecalciferol (Vitamin D3) [Vitamin D] 5,000 unit PO DAILY 04/25/21 [History] Fish Oil/Borage/Flax/Om3,6,9 1 [[place] 3-6-9 Complex Softgel] 1 each PO BID 04/25/21 [History] Flecainide [Tambocor] 1 tab PO BID 04/25/21 [History] Hydrocodone/Acetaminophen [Hydrocodon-Acetaminoph 7.5-300] 1 tab PO Q6HR 04/29/21 [History] Linaclotide [Linzess] 1 applic PO DAILY 04/29/21 [History] Past Medical History HEENT History: Reports: Cataract, Impaired Vision Cardiovascular History: Reports: Afib, Arrhythmia, High Cholesterol, Hypertension Other Cardiovascular History: afib Respiratory History: Reports: Asthma Other Respiratory History: childhood asthma Gastrointestinal History: Reports: Chronic Constipation Genitourinary History: Reports: Renal Calculus Musculoskeletal History: Reports: Back Pain, Chronic, Osteoarthritis Neurological History: Reports: Parkinson's, Seizure Other Neuro History: temporal lobe seizures Psychiatric History: Reports: None Hematologic History: Reports: Other (See Below) Other Hematologic History: lymes Oncologic (Cancer) History: Reports: Prostate Other Oncologic History: skin cancer Dermatologic History: Reports: Melanoma, Seborrheic Dermatitis - Infectious Disease History Infectious Disease History: Reports: Chicken Pox, Measles, Mumps, Rubella, Shingles, Other (See Below) Other Infectious Disease History: polio - Past Surgical History HEENT Surgical History: Reports: Cataract Surgery, Tonsillectomy Other HEENT Surgeries/Procedures: dental implant Male Surgical History: Reports: Prostatectomy Other Male Surgeries/Procedures: 2013 Social & Family History - Tobacco Use Tobacco Use Status *Q: Never Tobacco User - Caffeine Use Caffeine Use: Reports: None - Recreational Drug Use Recreational Drug Use: No ED ROS GENERAL - Review of Systems Review Of Systems: Comprehensive ROS is negative, except as noted in HPI. ED EXAM,LOWER BACK PAIN/INJURY - Physical Exam Exam: See Below Text/Narrative:: 81-year-old male lying on the gurney not appearing to be greatly distressed with okay vital signs. HEENT shows eyes ears nose and throat appear to be normal Neck is supple normal range of motion Chest clear regular rate and rhythm no abnormal sounds Abdomen soft active bowel sounds Extremities no deformity or edema Skin inspection palpation is okay Neurologic he appears to have reasonable tone and symmetry without focal deficits musculoskeletal exam shows he has tenderness over the lumbar spine on palpation posteriorly Course - Vital Signs Text/Narrative:: Treatment of constipation as discussed including Linzess which he is on and increasing his MiraLAX to a capful every hour or 2 until delivery occurs In the meantime a CT of his lumbar spine will be entertained looking for any compression fractures or causes of pain Except to Tylenol and 400 Motrin given for pain Radiologist report is noted and he has a compression fracture endplate area of L2 and probably foraminal narrowing L3-4. MRI would probably not be helpful. He agrees with that. 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 Duque and return for new or worse symptoms Last Recorded V/S: Last Vital Signs Temp 35.9 C L 04/29/21 12:51 Pulse 78 04/29/21 12:51 Resp 16 04/29/21 12:51 BP 125/64 04/29/21 12:51 Pulse Ox 96 04/29/21 12:51 - Orders/Labs/Meds Meds: Medications Discontinued Medications Generic Name Dose Route Start Last Admin Trade Name Bennettq PRN Reason Stop Dose Admin Acetaminophen 650 mg 04/29/21 13:52 04/29/21 14:07 Acetaminophen 325 Mg Tab PO 04/29/21 13:53 650 mg NOW ONE Administration Fentanyl 100 mcg 04/29/21 14:41 Fentanyl 100 Mcg/2 Ml Sdv IVPUSH 04/29/21 14:42 ONETIME ONE Ibuprofen 400 mg 04/29/21 13:52 04/29/21 14:06 Ibuprofen 400 Mg Tab PO 04/29/21 13:53 400 mg ONETIME ONE Administration Departure - Departure Time of Disposition: 15:45 Disposition: Home, Self-Care 01 Clinical Impression: Parkinsons disease - Discharge Information Referrals: Sachin Garcia MD [Primary Care Provider] - Forms: ED Department Discharge Sepsis Event Note (ED) - Evaluation Sepsis Screening Result: No Definite Risk - Focused Exam Vital Signs: Vital Signs Temp Pulse Resp BP Pulse Ox 04/29/21 12:51 35.9 C L 78 16 125/64 96 04/29/21 12:50 35.9 C L 78 16 125/64 96
[2021-04-29] MEDS ORDERED: fentaNYL 100 MCG/2 ML SDV IVPUSH ONE (14:41)
--- NOTE | 2021-04-29 15:06 | CRLCT ---
For Patients: As a result of the Century Cures Act, medical imaging exams and procedure reports are released immediately into your electronic medical record. You may view this report before your referring provider. If you have questions, please contact your health care provider. Indication: Fall, back pain for several days Technique: Volumetric multidetector CT images of the lumbar spine were obtained without the administration of IV contrast. Comparison: Four views lumbar spine April 25, 2021 Findings: There is demonstration of an acute compression fracture of the anterosuperior L2 vertebral body with approximately 30 percent height loss. There are additional subchondral cystic and endplate Schmorl`s degenerative changes otherwise, the remaining vertebral body heights are grossly preserved. There is preserved lumbar lordosis without significant spondylolisthesis. There is moderate multilevel degenerative disc disease with disc height loss and marginal osteophyte formation. There is likely moderate bilateral neural foraminal narrowing appreciated from the L3-L4 through L5-S1 levels. There is no other displaced fracture or dislocation identified. There is no extension into the posterior elements. There is a moderate to severe amount of stool seen throughout the colon. Atherosclerotic calcification is seen in the aorta. There are dependent calculi within the gallbladder. Impression: Demonstration of an acute compression fracture of the anterior superior L2 vertebral body with approximately 30 percent height loss. There is no significant spondylolisthesis or extension into the posterior elements. Please note that all CT scans at this facility use dose modulation, iterative reconstruction, and/or weight-based dosing when appropriate to reduce radiation dose to as low as reasonably achievable. Dictated by Hernan Zarate MD @ 04/29/2021 3:05:[address] Hernan Zarate @ Apr 29 2021 3:05PM
== END 2021-04-29 15:46 | disposition home or self-care (01) ==
LOC: JP.ED 11:46
DX: G20 Parkinson's disease (principal); I48.91 Unspecified atrial fibrillation; E78.00 Pure hypercholesterolemia, unspecified; I10 Essential (primary) hypertension; Z79.01 Long term (current) use of anticoagulants; Z79.899 Other long term (current) drug therapy
CPT/HCPCS: 72131; 96374; 99284; A9270